=== PATIENT | male | born 1990 | race African-American/Black ===

== ENCOUNTER 2019-05-19 12:29 | Emergency (ER) | payer OTHER ==
[2019-05-19 12:39] VITALS: TEMP 98.2; BMI 27.9
[2019-05-19] MEDS ORDERED: traMADol HCL 50 MG TABLET PO ONE (13:01)
[2019-05-19] MEDS ORDERED: traMADol HCL 50 MG TABLET ONE (13:02)
--- NOTE | 2019-05-19 13:04 | PDOC ---
History of Present Illness - General Chief Complaint: Injury Stated Complaint: LT LEG PAIN Time Seen by Provider: 05/19/19 12:40 History Source: Patient Exam Limitations: No Limitations - History of Present Illness Initial Comments: 05/19/19 13:01 HISTORY OF PRESENT ILLNESS: 28-year-old otherwise healthy male presents emergency department for evaluation of right thigh pain while playing basketball today. Patient reports he attempted to jump and felt a pop in his thigh. Patient has had difficulty ambulating since the injury. Initially pain was 10/10 but patient took an Aleve prior to arrival in the emergency department is currently 7/10. No recent travel or sick contacts. PAST MEDICAL HISTORY: Denies past medical history SURGICAL HISTORY: Denies ALLERGIES: No known drug allergies REVIEW OF SYSTEMS General/Constitutional: Denies fever or chills. Denies weakness, weight change. HEENT: Denies change in vision. Denies ear pain or discharge. Denies sore throat. Cardiovascular: Denies chest pain or shortness of breath. Respiratory: Denies cough, wheezing, or hemoptysis. Gastrointestinal: Denies nausea, vomiting, diarrhea or constipation. Denies rectal bleeding. Genitourinary: Denies dysuria, frequency, or change in urination. Musculoskeletal: See HPI Skin and breasts: Denies rash or easy bruising. Neurologic: Denies headache, vertigo, loss of consciousness, or loss of sensation. Psychiatric: Denies depression or anxiety. Endocrine: Denies increased thirst. Denies abnormal weight change. Hematologic/Lymphatic: Denies anemia, easy bleeding, or history of blood clots. Allergic/Immunologic: Denies hives or skin allergy. Denies latex allergy. PHYSICAL EXAM General Appearance: Well-appearing, appropriately dressed. No apparent distress , no intoxication. Cardiovascular: RRR. S1, S2. No JVD, murmur, bradycardia, tachycardia. Vascular Pulses: Dorsalis-Pedis (R): 2+, Dorsalis-Pedis (L): 2+ Musculoskeletal/Extremities: Normal inspection. Decreased extension of left knee. Normal range of motion of other joints. Normal capillary refill. Pelvis Stable. No CVA tenderness. No tenderness to extremities, pedal edema, swelling, erythema or deformity. Integumentary: Appropriate color, dry, warm. No cyanosis, erythema, jaundice or rash Neurologic: clinic specialist II-XII intact. Fully oriented, alert. Appropriate mood/affect. Motor strength 5/5. No appreciable EOM palsy, facial droop or sensory deficit. Past History - Past Medical History Allergies/Adverse Reactions: Allergies Allergy/AdvReac Type Severity Reaction Status Date / Time No Known Allergies Allergy Verified 05/19/19 12:34 Home Medications: Ambulatory Orders Isoniazid 1 tab PO DAILY 05/19/19 CVA: No COPD: No CHF: No DVT: No - Immunization History Immunization Up to Date: Yes - Psycho Social/Smoking Cessation Hx Smoking History: Never smoked Hx Alcohol Use: No Drug/Substance Use Hx: No *Physical Exam - Vital Signs Last Vital Signs Temp Pulse Resp BP Pulse Ox 98.2 F 127 H 16 129/75 100 05/19/19 12:35 05/19/19 12:35 05/19/19 12:35 05/19/19 12:35 05/19/19 12:35 ED Treatment Course - RADIOLOGY Radiology Studies Ordered: Category Date Time Status FEMUR-RIGHT [RAD] Stat Radiology 05/19/19 13:01 Ordered Medical Decision Making - Medical Decision Making 05/19/19 13:04 A/P: 28-year-old male with left thigh pain while playing basketball Decreased range of motion with extension of the knee. Tender to palpation over the left quadriceps Tramadol 50 mg orally now Left femur x-ray Reassess 05/19/19 13:47 Left femur x-ray as read by Dr. Wheatley: No acute left femur pathology noted. Due to inability to extend knee this is likely a tendon rupture patient will be given referral for orthopedist for continued evaluation. I discussed the physical exam findings, ancillary test results and final diagnoses with the patient. I answered all of the patient's questions. The patient was satisfied with the care received and felt comfortable with the discharge plan and treatment plan. The patient will call their primary care physician within 24 hours to arrange follow-up and will return to the Emergency Department with any new, persistent or worsening symptoms. Discharge - Discharge Information Problems reviewed: Yes Clinical Impression/Diagnosis: Thigh pain Qualifiers: Laterality: left Qualified Code(s): M79.652 - Pain in left thigh Condition: Fair Disposition: HOME - Admission No - Follow up/Referral Referrals: Jose Powers MD [Primary Care Provider] - Lázaro Villalpando DO [Staff Physician] - - Patient Discharge Instructions Additional Instructions: Without fail you must follow-up with orthopedist for continued evaluation. The phone numbers been provided on the paperwork. Take Tylenol or Motrin as needed for pain. Follow meat dresser's instructions for appropriate dosage. Avoid Motrin/Advil/ibuprofen today as you very taken Naprosyn which is a similar medication. This may lead to an overdose. Do not put weight on your leg as this may cause increased pain. Use crutches at all times. Apply ice to your knee for a minimum of 20 minutes prior to removing for at least 20 minutes. You may repeat the ice as needed. Keep your leg elevated to help decrease some of the swelling and control pain. Return to the emergency department for any new or worsening symptoms. Thank you very much for choosing us to provide your emergent health care needs. - Post Discharge Activity Work/Back to School Note: Back to Work
[2019-05-19 14:01] VITALS: BP 130/81; PULSE 108
== END 2019-05-19 13:40 | disposition home or self-care (01) ==
LOC: JER 12:29
DX: M79.652 Pain in left thigh (principal)
CPT/HCPCS: 73552-TC-LT-FY; 99282-25

== ENCOUNTER 2022-05-21 13:35 | Emergency (ER) | payer OTHER ==
[2022-05-21 14:06] VITALS: BP 112/69; PULSE 90; RESP 18; TEMP 98.2; BMI 27.2
[2022-05-21] MEDS ORDERED: DIPHTH,PERTUSS(ACELL),TET 0.5 ML DISP.SYRIN IM ONE ×2 (15:57→16:01)
== END 2022-05-21 19:15 | disposition home or self-care (01) ==
LOC: JERFT 13:35
PROC: 0HQMXZZ Repair Right Foot Skin, External Approach (ICD-10-PCS; principal; 2022-05-21)
PROC: 3E0234Z Introduction of Serum, Toxoid and Vaccine into Muscle, Percutaneous Approach (ICD-10-PCS; 2022-05-21)
DX: S91.311A Laceration without foreign body, right foot, initial encounter (principal); W25.XXXA Contact with sharp glass, initial encounter
CPT/HCPCS: 12002-25; 73630-TC-RT-FY; 90471; 90715; 99283-25

== ENCOUNTER 2022-06-02 09:10 | Emergency (ER) | payer OTHER ==
[2022-06-02 09:42] VITALS: BP 114/68; PULSE 76; RESP 20; TEMP 98; BMI 27.2
[2022-06-02] MEDS ORDERED: BACITRACIN 0.9 GM PACKET ONE (09:52)
== END 2022-06-02 09:59 | disposition home or self-care (01) ==
LOC: JERFT 09:10
DX: S91.311A Laceration without foreign body, right foot, initial encounter (principal); W25.XXXA Contact with sharp glass, initial encounter; Z48.02 Encounter for removal of sutures
CPT/HCPCS: 99281-25